=== PATIENT | male | born 1935 | race Caucasian/White ===

== ENCOUNTER 2023-04-24 10:37 | Outpatient (RCR) | payer MEDICARE, OTHER, SELFPAY | END 2023-05-05 23:59 | disposition home or self-care (01) | LOC: SPT 10:37 | PROVIDERS: PCP Family Medicine; Visit Provider Family Medicine | DX: R42 Dizziness and giddiness (principal); Z91.81 History of falling | CPT/HCPCS: 95992; 97161 ==

== ENCOUNTER 2023-07-23 11:35 | Outpatient (CLI) | payer OTHER, SELFPAY ==
--- NOTE | 2023-07-23 11:42 | USCV_ITS ---
Frederic Amaya Age: 88 Gender: M : 1935 Exam Date: 07/23/2023 11:59 Ordering Phys: Tarah Ballard MD Technologist: Exam Location: [facility] [place] Indication: pad Risk Factors: Previous Vascular Surgery: RIGHT LEFT BP: 125.0 / 80.00 BP: / 0 Waveform Velocity (cm/s) Velocity (cm/s) Waveform Biphasic 71.5 Iliac Prox 64.1 Biphasic Biphasic 68.4 Iliac Mid 70.4 Biphasic Biphasic Iliac Distal Biphasic 71.5 49.8 Biphasic 82.3 TRAVEL COUNSELOR 57.9 Biphasic Biphasic 66.0 SFA Prox 53.6 Biphasic Biphasic 60.6 SFA Mid 87.0 Biphasic Biphasic 46.6 SFA Dist 78.6 Biphasic Biphasic 60.6 POP 99.2 Biphasic Biphasic 43.0 WIDE PIECE GOODS INSPECTOR 83.8 Biphasic Biphasic 0.0 DPA 67.3 Biphasic 1.2 SHADIA 1.4 FINDINGS Mild to moderate diffuse plaques in the iliac, and femoral arteries bilaterally. Resting SHADIA 1.2 on the right and 1.4 on the left CONCLUSIONS 1. Mild to moderate diffuse plaque in the iliac and femoral arteries bilaterally 2. Normal resting ABIs bilaterally 3. No significant arterial obstruction, based on the above findings Dr Darwin Miner MD FACC (Electronically Signed) Final Date: 23 July 2023 18:42 S
== END 2023-07-23 11:36 | disposition home or self-care (01) ==
LOC: RAD 11:37
PROVIDERS: PCP Family Medicine; Visit Provider Family Medicine
DX: Z01.89 Encounter for other specified special examinations (principal); I70.213 Atherosclerosis of native arteries of extremities with intermittent claudication, bilateral legs
CPT/HCPCS: 93925

== ENCOUNTER 2023-08-10 11:14 | Outpatient (CLI) | payer OTHER, SELFPAY ==
--- NOTE | 2023-08-10 11:20 | MR_ITS ---
WS: [id number] MRI LUMBAR SPINE NONCONTRAST HISTORY: LOW BACK PAIN,MULTILEVEL DISC DZ SEVERE COMPARISON: None available. TECHNIQUE: Sagittal and axial multisequence imaging is submitted. Increase in thoracic kyphosis. Ventriculomegaly is noted on the custodial aide survey. Increase in the lumbar lordosis. Disc spaces are narrowed and desiccated. Chronic fatty marrow replacement changes involving the lumba r endplates. No fracture. Conus terminates normally at L1-2 disc level. L1-L2: Mild osteophytic ridging and facet arthritis. No high-grade stenosis. L2-L3: Mild diffuse annular disc bulging, osteophytic ridging and ligamentum flavum and facet arthrit is. Mild central and bilateral subarticular recess stenosis. There is mild disc contact upon the gabriela ersing L3 nerve roots. L3-L4: Diffuse mild annular disc bulging encroaching upon the ventral thecal sac. Moderate ligamentum flavum and facet arthritis. Mild central with moderate bilateral subarticular recess encroachment. B ilateral moderate foraminal stenosis. L4-L5: Diffuse annular disc bulging with osteophytic ridging, ligamentum flavum and facet arthritis. Mild central and bilateral subarticular recess and moderate foraminal stenosis. Greater on the LEFT t mayo the RIGHT. There is disc encroachment upon the traversing L5 nerve roots. Greatest disc encroachm ent upon the RIGHT traversing L5 nerve root. L5-S1: Mild annular disc bulging. Fluid in the facet joints. Paravertebral soft tissues demonstrate atherosclerotic changes within the aorta. IMPRESSION: 1. Mild increase in lumbar lordosis. 2. L2-3: Mild central and bilateral subarticular recess stenosis. There is mild disc contact on the traversing L3 nerve roots. 3. L3-4: Mild central with moderate bilateral subarticular recess and foraminal stenosis. 4. L4-5: Moderate bilateral foraminal stenosis, LEFT greater than RIGHT. Additional mild central and bilateral subarticular recess stenosis. 5. Fluid in the facet joints at L5-S1.
== END 2023-08-10 11:15 | disposition home or self-care (01) ==
LOC: RAD 11:15
PROVIDERS: PCP Family Medicine; Visit Provider Family Medicine
DX: M51.37 Other intervertebral disc degeneration, lumbosacral region (principal); M40.56 Lordosis, unspecified, lumbar region; M48.061 Spinal stenosis, lumbar region without neurogenic claudication; M47.817 Spondylosis without myelopathy or radiculopathy, lumbosacral region
CPT/HCPCS: 72148

== ENCOUNTER → 2023-11-03 11:28 | Outpatient (BNVA) | payer OTHER, SELFPAY | PROVIDERS: PCP Family Medicine; Visit Provider Orthopaedic Surgery | DX: M54.9 Dorsalgia, unspecified (principal); M48.062 Spinal stenosis, lumbar region with neurogenic claudication | CPT/HCPCS: 72110; 99204 ==

== ENCOUNTER → 2024-03-15 13:41 | Outpatient (BNVA) | payer OTHER, SELFPAY | PROVIDERS: PCP Family Medicine; Visit Provider Orthopaedic Surgery | DX: Z01.818 Encounter for other preprocedural examination (principal); M48.062 Spinal stenosis, lumbar region with neurogenic claudication | CPT/HCPCS: 36415; 80053; 81001; 85025; 99214 ==

== ENCOUNTER → 2024-03-18 12:16 | Outpatient (BNVA) | payer OTHER, SELFPAY | PROVIDERS: PCP Family Medicine; Visit Provider Family Medicine | DX: Z01.818 Encounter for other preprocedural examination (principal); I49.8 Other specified cardiac arrhythmias; I49.3 Ventricular premature depolarization | CPT/HCPCS: 93005 ==

== ENCOUNTER → 2024-03-21 10:08 | Outpatient (BNVA) | payer OTHER, SELFPAY | PROVIDERS: PCP Family Medicine; Visit Provider Family Medicine | DX: Z01.818 Encounter for other preprocedural examination (principal) | CPT/HCPCS: 80048 ==

== ENCOUNTER 2024-04-06 05:43 | Day surgery (SDC) | payer OTHER, SELFPAY ==
[2024-04-06] VITALS (9 sets, daily range): BP systolic 129–140; BP diastolic 73–82; PULSE 70–77; RESP 16–18; TEMP 36.2–36.8; O2SAT 91–99; BMI 28.7
--- NOTE | 2024-04-06 06:08 | ANES.PREANE2 ---
Pre-Anesthetic Assessment Height/Weight: Height 5 ft 10 in Preop Diagnosis: Lumbar stenosis with neurogenic claudication Operation Date: 04/06/24 07:00 Proposed Procedures p Lumbar Spine Decompression Lumbar Decompression(Not Applicable) - Barrett Scales, DO Was Beta Sofie taken within 24 hours: Yes Was Clonidine taken within 24 hours: N/A Social No alcohol and No tobacco Exam alert, oriented x 3, clear to auscultation bilaterally and regular rate & rhythm Airway Submandibular: within normal limits Cervical ROM: within normal limits Mallampati: Class III Dentition: full and other (Multiple missing teeth and back) Anesthetic Plan ASA status: 3 Anesthesia: General Other: No prior issues with anesthesia NPO since midnight History of SLIM, compliant with CPAP Hypertension on amlodipine, losartan and carvedilol. BB taken yesterday evening CAD, stent placed 2001 GERD on omeprazole Labs 03/15/2024 reviewed and acceptable for procedure. Chronic hyponatremia. Recent sodium 129 EKG showing sinus rhythm with PVCs Patient ambulates with a cane, admits to getting short of breath after walking a few blocks Plan for GETA Medications/Allergies Home Medications Medication Instructions Recorded Confirmed Last Taken Type aspirin 81 mg tablet,delayed 81 mg PO DAILY 11/03/23 04/05/24 03/22/24 History release carvedilol 6.25 mg tablet 6.25 mg PO BID 11/03/23 04/05/24 04/05/24 History cetirizine 10 mg tablet 10 mg PO DAILY PRN Allergic 11/03/23 04/05/24 04/05/24 History Symptoms clonazepam 0.25 mg disintegrating 0.25 mg PO DAILY 11/03/23 04/05/24 04/05/24 History tablet coenzyme Q10 10 mg capsule 10 mg PO TID 11/03/23 04/05/24 Unknown History omega-3 acid ethyl esters 1 gram 1 cap PO DAILY 11/03/23 04/05/24 Unknown History capsule omeprazole 20 mg capsule,delayed 20 mg PO DAILY 11/03/23 04/05/24 04/05/24 History release polyethylene glycol 3350 17 4 g PO DAILY 11/03/23 04/05/24 Unknown History gram/dose oral powder simvastatin 20 mg tablet 20 mg PO DAILY 11/03/23 04/05/24 04/05/24 History albuterol sulfate 90 mcg/actuation 2 puff inhalation Q6H PRN 03/18/24 04/05/24 Unknown History aerosol inhaler Shortness Of Breath Or Wheezing amlodipine 5 mg tablet See Rx Instructions PO .COMPLEX 03/18/24 04/05/24 04/05/24 History fluticasone propionate 50 2 spray intranasal DAILY 03/18/24 04/05/24 Unknown History mcg/actuation nasal spray,suspension losartan 50 mg tablet 50 mg PO DAILY 03/18/24 04/05/24 04/05/24 History meclizine 25 mg tablet 25 mg PO TID PRN Dizziness 03/18/24 04/05/24 04/05/24 History tizanidine 4 mg tablet 4 mg PO ONCE PRN Spasms 03/18/24 04/05/24 04/05/24 History Allergies Allergy/AdvReac Type Severity Reaction Status Date / Time No Known Allergies Allergy Unverified 03/18/24 12:34 PFSH Anesthesia Social History Smoking and tobacco/nicotine status: never used tobacco/nicotine Data Anesthesia Cardiac Studies: No Data to Display
--- NOTE | 2024-04-06 06:29 | W.PM.OPSUD ---
Surgery/Procedure H&P Update DATE OF PROCEDURE: April 06, 2024 DATE H&P PERFORMED: 03/18/24 H&P UPDATE INFORMATION: I have reviewed H&P completed within last 30 days, I have examined patient prior to procedure and No changes to prior documentation PREOP DIAGNOSIS: Lumbar stenosis with neurogenic claudication PLANNED PROCEDURE: Operation Date: 04/06/24 07:00 Proposed Procedures p Lumbar Spine Decompression Lumbar Decompression(Not Applicable) - Barrett Scales DO
[2024-04-06] MEDS: sodium chloride 0.9% 1,000 ML 30 ML IV (06:35)
[2024-04-06] MEDS: ceFAZolin 2,000 mg SDV 2000 MG IVP (06:50)
[2024-04-06] MEDS: lidocaine-epi 1% 20 mL INJ INJECTION (07:22)
--- NOTE | 2024-04-06 08:19 | P.OP_ITS ---
Operative Report Date of procedure: April 06, 2024 Pre-op diagnosis: Lumbar stenosis with neurogenic claudication Post-op diagnosis: same Procedure done: 1. L3-4 laminectomy with partial facetectomy 2. L4-5 laminectomy with partial facetectomy Surgeon: Barrett Scales DO Estimated blood loss (mL): 5 Procedure: 1. L3-4 laminectomy with partial facetectomy 2. L4-5 laminectomy with partial facetectomy Patient is brought to the operative suite. After undergoing anesthesia they are placed in the prone position. All areas of impingement are well padded. Patient is then prepped and draped in the normal sterile fashion. A skin incision is made over the L3-4 level. This is confirmed under c-arm guidance. A series of dilators are passed and the tubular retractor is docked on the L3 lamina. A bovie is used to clear the soft tissue off the lamina and the L 3/4 facet joint. A high speed chase is then used to perform the laminectomy and take down the medial aspect of the L 3/4 facet joint. A kerrison rongeure was then used to take down the remaining lamina and smooth the edge of the laminectomy up to the point where the ligamentum flavum attaches. Attention was then brought to the medial aspect of the facet joint. The remaining medial aspect of the superior and inferior aspect of the facet joint were taken down with the kerrison from the pedicle of L3 to L 4. The facet joint had significant hypertrophy. Attention was then brought to the Ligamentum Flavum. The ligament was taken down from the lamina of L3 to L4 and out medially to the remaining facet joint. The ligament was thick. The dura was then exposed. The dura was in good repair. The L3 nerve was then traced with a curette out the L3/4 foramen and found to be adequately decompressed. The L4 nerve was traced with a curette around the L4 pedicle. The lateral recess was opened with a kerrison helping to further decompress the L4 nerve. Wound is then irrigated copiously with saline and surgiflo is used to stop any bleeding. The tubular retractor is removed A skin incision is made over the L4-5 level. This is confirmed under c-arm guidance. A series of dilators are passed and the tubular retractor is docked on the L4 lamina. A bovie is used to clear the soft tissue off the lamina and the L 4/5 facet joint. A high speed chase is then used to perform the laminectomy and take down the medial aspect of the L 4/5 facet joint. A kerrison rongeure was then used to take down the remaining lamina and smooth the edge of the laminectomy up to the point where the ligamentum flavum attaches. Attention was then brought to the medial aspect of the facet joint. The remaining medial aspect of the superior and inferior aspect of the facet joint were taken down with the kerrison from the pedicle of L4 to L 5. The facet joint had significant hypertrophy. Attention was then brought to the Ligamentum Flavum. The ligament was taken down from the lamina of L4 to L5 and out medially to the remaining facet joint. The ligament was thick. The dura was then exposed. The dura was in good repair . The L4 nerve was then traced with a curette out the L4/5 foramen and found to be adequately decompressed. The L5 nerve was traced with a curette around the L5 pedicle. The lateral recess was opened with a kerrison helping to further decompress the L5 nerve. Wound is then irrigated copiously with saline and surgiflo is used to stop any bleeding. The tubular retractor is removed and the wound is closed with vicryl and monocryl suture. Glue is then used to protect the wound. A sterile dressing is then placed. Patient was then placed in the supine position and transferred to the PACU in stable condition.
--- NOTE | 2024-04-06 09:26 | ANE.PACU2 ---
Inpatient post-anesthesia follow up: Airway intact: Yes Vital signs: Temperature 97.1 F Pulse Rate 74 Respiratory Rate 18 Blood Pressure 134/80 Pulse Oximetry 92 Oxygen Delivery Me thod Room Air Oxygen Flow Rate 8 Fraction of Inspir ed Oxygen Hydration adequate: Yes Nausea and vomiting: No Pain level: 1 Mental status: Baseline
--- NOTE | 2024-04-06 09:48 | XR_ITS ---
WS: [id number] Exam: XR lumbar spine 1V [id number] Date/Time of Exam: 04/06/2024 9:48 AM Reason For Exam: or pic, decompression. Limited AP C-arm images of the lumbar spine are submitted. Images are obtained for preop planning and localization purposes.
== END 2024-04-06 09:26 | disposition home or self-care (01) ==
PROVIDERS: PCP Family Medicine; Visit Provider Orthopaedic Surgery
PROC: (CPT 63005; principal; 2024-04-06 07:00)
DX: M48.062 Spinal stenosis, lumbar region with neurogenic claudication (principal); G47.33 Obstructive sleep apnea (adult) (pediatric); Z99.89 Dependence on other enabling machines and devices; I10 Essential (primary) hypertension; I25.10 Atherosclerotic heart disease of native coronary artery without angina pectoris; Z95.5 Presence of coronary angioplasty implant and graft
CPT/HCPCS: 63047; 63048; 72020; 76000; J0131; J0690; J1100; J2371; J2405; J2704; J3010; J3490; J7030

== ENCOUNTER → 2024-04-21 13:50 | Outpatient (BNVA) | payer OTHER, SELFPAY | PROVIDERS: PCP Family Medicine; Visit Provider Orthopaedic Surgery | DX: Z98.890 Other specified postprocedural states (principal) | CPT/HCPCS: 99024 ==

== ENCOUNTER → 2024-06-07 14:42 | Outpatient (BNVA) | payer OTHER, SELFPAY | PROVIDERS: PCP Family Medicine; Visit Provider Orthopaedic Surgery | DX: Z98.890 Other specified postprocedural states (principal) | CPT/HCPCS: 99024 ==

== ENCOUNTER → 2024-07-26 10:45 | Outpatient (BNVA) | payer OTHER, SELFPAY | PROVIDERS: PCP Family Medicine; Visit Provider Orthopaedic Surgery | DX: Z98.890 Other specified postprocedural states (principal) | CPT/HCPCS: 99024 ==

== ENCOUNTER → 2024-10-25 10:20 | Outpatient (BNVA) | payer OTHER, SELFPAY | PROVIDERS: PCP Family Medicine; Visit Provider Orthopaedic Surgery | DX: Z98.890 Other specified postprocedural states (principal) | CPT/HCPCS: 99213 ==